=== PATIENT | male | born 1970 | race Caucasian/White ===

== ENCOUNTER 2019-04-19 00:31 | Emergency (ER) | payer BC ==
[2019-04-19] MEDS ORDERED: Lidocaine 1% with EPINEPHrine 1:100,000 50 ML MDV SUBCUT STA (01:02)
--- NOTE | 2019-04-19 01:04 | EDM.PDOC ---
ED HPI GENERAL MEDICAL PROBLEM - General Chief Complaint: Skin Complaint Stated Complaint: FALL [facility]IA [facility] Time Seen by Provider: 04/19/19 01:02 Source of Information: Reports: Patient, RN Notes Reviewed History Limitations: Reports: Intoxication - History of Present Illness INITIAL COMMENTS - FREE TEXT/NARRATIVE: 49-year-old gentleman presents emergency department today via EMS services with a laceration to the back of his head, he does admit to consuming alcohol today he slipped fell hit his head on the back of the open door. There is no loss of consciousness he has no other complaints - Related Data Allergies Allergy/AdvReac Type Severity Reaction Status Date / Time No Known Allergies Allergy Verified 04/19/19 00:45 Home Meds: Home Meds Aspirin 81 mg PO DAILY 04/19/19 [History] Simvastatin [Zocor] 10 mg PO BEDTIME 04/19/19 [History] Ubidecarenone [Co Q-10] 10 mg PO DAILY 04/19/19 [History] Vit D3/Folic Acid/B2/B6/B12 [Folgard Tablet] 1 tab PO DAILY 04/19/19 [History] Past Medical History Cardiovascular History: Reports: High Cholesterol, Hypertension Respiratory History: Reports: Sleep Apnea Musculoskeletal History: Reports: Arthritis Neurological History: Reports: Head Trauma Other Neuro History: brain shunt Other Endocrine/Metabolic History: pre-diabetic - Infectious Disease History Infectious Disease History: Reports: Chicken Pox - Past Surgical History Head Surgeries/Procedures: Reports: Shunt GI Surgical History: Reports: Cholecystectomy Social & Family History - Family History Family Medical History: Noncontributory - Tobacco Use Smoking Status *Q: Former Smoker Used Tobacco, but Quit: Yes Month/Year Tobacco Last Used: 2004 - Caffeine Use Caffeine Use: Reports: Coffee Caffeine Use Comment: daily coffee use- 4 cups per day - Alcohol Use Days Per Week of Alcohol Use: 1 Number of Drinks Per Day: 10 Total Drinks Per Week: 10 - Recreational Drug Use Recreational Drug Use: No ED ROS GENERAL - Review of Systems Review Of Systems: See Below Constitutional: Reports: No Symptoms Respiratory: Reports: No Symptoms Cardiovascular: Reports: No Symptoms GI/Abdominal: Reports: No Symptoms Skin: Reports: Wound ED EXAM, SKIN/RASH Exam: See Below Text/Narrative:: Examination the scalp there is a 5 cm superficial laceration in the occipital region bleeding is controlled Exam Limited By: Intoxication General Appearance: Alert, No Apparent Distress Eye Exam: Bilateral Eye: Normal Inspection Ears: Normal External Exam, Normal Canal, Hearing Grossly Normal, Normal TMs ED SKIN PROCEDURES - Laceration/Wound Repair Head Appearance: Subcutaneous, Linear, Clean Distal NVT: Neuro & Vascular Intact, No Tendon Injury Anesthetic Type: Local Local Anesthesia - Lidocaine (Xylocaine): 1% with EPI Local Anesthetic Volume: 2cc Skin Prep: Saline Saline Irrigation (cc's): 60 Exploration/Debridement/Repair: Wound Explored, In a Bloodless Field, Explored to Base Closed with: Vivien Lac/Wound length In cm: 4 # of Sutures: 6 Suture Type: Other ([place]) Sterile Dressing Applied: None Tetanus Status Addressed: Yes (2016) Complications: No Course - Vital Signs Last Recorded V/S: Last Vital Signs Temp 98.6 F 04/19/19 00:47 Pulse 104 H 04/19/19 00:47 Resp 16 04/19/19 00:47 BP 156/99 H 04/19/19 00:47 Pulse Ox 95 04/19/19 00:47 - Orders/Labs/Meds Meds: Medications Discontinued Medications Generic Name Dose Route Start Last Admin Trade Name Brad PRN Reason Stop Dose Admin Lidocaine/Epinephrine 20 ml 04/19/19 01:02 Xylocaine 1% With Epinephrine 1:100,000 SUBCUT 04/19/19 01:03 NOW STA Departure - Departure Time of Disposition: 01:16 Disposition: Home, Self-Care 01 Condition: Fair Clinical Impression: Occipital scalp laceration Qualifiers: Encounter type: initial encounter Qualified Code(s): S01.01XA - Laceration without foreign body of scalp, initial encounter - Discharge Information Referrals: PCP,None [Primary Care Provider] - Forms: ED Department Discharge Additional Instructions: Follow-up with primary care in 10 days for staple removal, follow wound care instruction sheet, call or return to the emergency department with worsening of symptoms - Assessment/Plan Plan: Assessment Acuity = acute Site and laterality = scalp laceration Etiology = secondary to fall Manifestations = none Location of injury = Home Lab values = none Plan Follow-up with primary care 10 days follow wound care instruction sheet This note was dictated using [employer] voice recognition software please call with any questions on syntax or grammar.
== END 2019-04-19 01:22 | disposition home or self-care (01) ==
LOC: JP.ED 00:31
DX: S01.01XA Laceration without foreign body of scalp, initial encounter (principal); E78.00 Pure hypercholesterolemia, unspecified; I10 Essential (primary) hypertension; Z79.82 Long term (current) use of aspirin; Z79.899 Other long term (current) drug therapy; Z87.891 Personal history of nicotine dependence; W01.198A Fall on same level from slipping, tripping and stumbling with subsequent striking against other object, initial encounter; Y92.009 Unspecified place in unspecified non-institutional (private) residence as the place of occurrence of the external cause
CPT/HCPCS: 12002; 99283-25